=== PATIENT | male | born 1950 | race Caucasian/White ===

== ENCOUNTER 2021-07-14 12:43 | Emergency (ER) | payer OTHER ==
[~2021-07-14] VITALS: Ht 185.4 cm; Wt 88.5 kg
[2021-07-14 14:04] VITALS: BP 159/79
== END 2021-07-14 14:51 | disposition home or self-care (01) ==
LOC: ER 12:43
DX: S16.1XXA Strain of muscle, fascia and tendon at neck level, initial encounter (principal); S09.8XXA Other specified injuries of head, initial encounter; M50.30 Other cervical disc degeneration, unspecified cervical region; F12.10 Cannabis abuse, uncomplicated; V43.62XA Car passenger injured in collision with other type car in traffic accident, initial encounter; Y93.89 Activity, other specified; Y92.89 Other specified places as the place of occurrence of the external cause; Y99.8 Other external cause status
CPT/HCPCS: 70450; 72125